=== PATIENT | male | born 1975 | race Caucasian/White ===

== ENCOUNTER 2017-12-30 13:02 | Emergency (ER) | payer OTHER ==
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
[2017-12-30 14:46] VITALS: BP 135/81
== END 2017-12-30 14:46 | disposition home or self-care (01) ==
DX: S01.439A Puncture wound without foreign body of unspecified cheek and temporomandibular area, initial encounter (principal); W26.8XXA Contact with other sharp object(s), not elsewhere classified, initial encounter; V86.56XA Driver of dirt bike or motor/cross bike injured in nontraffic accident, initial encounter